=== PATIENT | female | born 1960 | race Caucasian/White ===

== ENCOUNTER 2017-05-10 14:40 | Emergency (ER) | payer OTHER ==
[2017-05-10] MEDS ORDERED: oxyCODONE/Acetamin 10/325(NF) TAB PO ONE (16:23)
[2017-05-10 16:42] LABS: Urine Appearance Clear; Urine Blood Negative (Negative); Urine Color Straw; Urine Ketones Negative (Negative); Urine Protein Negative (Negative); Urine Specific Gravity 1.002 (1.010-1.030); Urine Urobilinogen Negative (Negative)
[2017-05-10] MEDS ORDERED: oxyCODONE/Acetamin 5/325 MG* TAB PO ONE ×2 (17:00→17:58)
[2017-05-10] MEDS ORDERED: oxyCODONE TAB* 5 MG TAB PO ONE ×2 (17:00→17:59)
--- NOTE | 2017-05-10 17:30 | RAD ---
Indication: Left groin pain. CT of the pelvis was obtained in the axial plane. Sagittal and coronal reconstructed images were obtained. The pelvic ring is intact with no evidence of fracture. There is a left direct type inguinal hernia containing omentum. No bowel herniation is noted. The right side is unremarkable. The uterus and ovaries are unremarkable. The colon is filled with stool. IMPRESSION: There appears to be a hernia in the left inguinal region consistent with a direct type hernia containing omentum.
[2017-05-10] MEDS ORDERED: Ketorolac INJ* 60 MG/2 ML VIAL IM ONE (17:58)
[2017-05-10] MEDS ORDERED: LORazepam TAB(*) 1 MG PO ONE (17:58)
[2017-05-10] MEDS ORDERED: Morphine INJ* 4 MG/ML 1 ML CARPUJECT IM ONE (18:51)
[2017-05-10] MEDS ORDERED: HYDROmorphone TAB* 4 MG PO ONE (18:52)
--- NOTE | 2017-05-10 18:59 | ED ---
Wilfredo Christie Abhishek, scribed for Arthur Garcia MD on 05/10/17 at 1629 . Abdominal Pain/Female - HPI Summary HPI Summary: This patient is a 57 year old F presenting to [facility] accompanied by male with a chief complaint of lower abd pain since Thursday (05/17/17). The pt states she has a lump in the groin area and states she has had it for a while. Prior to the onset of the pain, the pt was shoveling snow at her home with her when she suddenly felt pain in her lower abd region. According to the pts , the pt was in pain distress and crying for two days. When describing the pain, pt states the pain originates in the lower abd and is near the groin. The patient rates the pain 10/10 in severity. Symptoms aggravated by sitting down and movement. Symptoms alleviated by nothing. - History of Current Complaint Chief Complaint: EDAbdPain Stated Complaint: POSSIBLE HERNIA Time Seen by Provider: 05/10/17 15:55 Hx Obtained From: Patient, Family/Supervisor Machining Onset/Duration: Sudden Onset, Lasting Days - since 05/08/17 Timing: Constant Severity Initially: Severe Severity Currently: Severe Pain Intensity: 10 Pain Scale Used: 0-10 Numeric Location: Suprapubic, Groin Aggravating Factor(s): Movement, Other: - sitting down Alleviating Factor(s): Nothing Associated Signs and Symptoms: Positive: Negative Allergies/Adverse Reactions: Allergies Allergy/AdvReac Type Severity Reaction Status Date / Time Tramadol Allergy Swelling Verified 05/10/17 16:36 PMH/Surg Hx/FS Hx/Imm Hx Endocrine/Hematology History: Denies: Hx Diabetes Cardiovascular History: Denies: Hx Hypertension, Hx Pacemaker/ICD History: Denies: Hx Renal Disease Musculoskeletal History: Reports: Hx Back Problems - chronic back pain and back problems , Hx Fibromyalgia, Other Musculoskeletal History - Chronic Neck Pain Sensory History: Denies: Hx Hearing Aid Psychiatric History: Denies: Hx Panic Disorder - Surgical History Surgery Procedure, Year, and Place: BUNION LEFT FOOT S. C SECTION 1986 Infectious Disease History: No Infectious Disease History: Denies: Traveled Outside the [place] in Last 30 Days - Family History Known Family History: Positive: Other - mother with oral cancer. Negative: Cardiac Disease, Hypertension, Diabetes - Social History Alcohol Use: Rare Substance Use Type: Reports: Marijuana Hx Tobacco Use: Yes Smoking Status (MU): Current Every Day Smoker Type: Cigarettes Amount Used/How Often: 1 PPD Review of Systems Constitutional: Negative Eyes: Negative ENT: Negative Cardiovascular: Negative Respiratory: Negative Positive: Abdominal Pain - suprapubic abd pain Genitourinary: Negative Musculoskeletal: Other - Groin pain Positive: Other - "lump" near the groin area Skin: Negative Neurological: Negative Psychological: Normal All Other Systems Reviewed And Are Negative: Yes Physical Exam - Summary Physical Exam Summary: ppearance: The patient is well-nourished in no acute distress and in no acute pain. Skin: The skin is warm and dry and skin color reflects adequate perfusion. HEENT: ~The head is normocephalic and atraumatic. The pupils are equal and reactive. The conjunctivae are clear and without drainage. ~Nares are patent and without drainage. ~Mouth reveals moist mucous membranes and the throat is without erythema and exudate. ~The external ears are intact. The ear canals are patent and without drainage. The tympanic membranes are intact. Neck: the neck is supple with full range of motion and non-tender. There are no carotid bruits. ~There is no neck vein distension. Respiratory: Chest is non-tender. ~Lungs are clear to auscultation and breath sounds are symmetrical and equal. Cardiovascular: Heart is regular rate and rhythm. ~There is no murmur or rub auscultated. ~~There is no peripheral edema and pulses are symmetrical and equal. Abdomen: The abdomen is soft and non-tender. ~There are normal bowel sounds heard in all four quadrants and there is no organomegaly palpated. Musculoskeletal: Easily reducible left hernia Neurological: Patient is alert and oriented to person, place and time. ~The patient has symmetrical motor strength in all four extremities. ~Cranial nerves are grossly intact. Deep tendon reflexes are symmetrical and equal in all four extremities. Psychiatric: The patient has an appropriate affect and does not exhibit any anxiety or depression. Triage Information Reviewed: Yes Vital Signs On Initial Exam: Initial Vitals Temp Pulse Resp BP Pulse Ox 99.3 F 80 16 145/78 97 05/10/17 15:04 05/10/17 15:04 05/10/17 15:04 05/10/17 15:04 05/10/17 15:04 Vital Signs Reviewed: Yes - Leonard Coma Scale Coma Scale Total: 15 Diagnostics - Vital Signs Vital Signs Temp Pulse Resp BP Pulse Ox 05/10/17 15:04 99.3 F 80 16 145/78 97 - Laboratory Lab Results: Lab Results 05/10/17 Range/Units 16:30 Urine Color Straw Urine Appearance Clear Urine pH 7.0 (5-9) Ur Specific [place] 1.002 L (1.010-1.030) Urine Protein Negative (Negative) Urine Ketones Negative (Negative) Urine Blood Negative (Negative) Urine Nitrate Negative (Negative) Urine Bilirubin Negative (Negative) Urine Urobilinogen Negative (Negative) Ur Leukocyte Esterase Negative (Negative) Urine Glucose Negative (Negative) Lab Statement: Any lab studies that have been ordered have been reviewed, and results considered in the medical decision making process. - CT Pelvis CT CT Interpretation Completed By: Radiologist - Pelvis CT reveals There appears to be a hernia in the left inguinal region consistent with a direct type hernia containing omentum. ED physician has reviewed this radiology report and agrees. Abdominal Pain Fem Course/Dx - Course Course Of Treatment: Ms. Jose Roberts presented with left groin pain since shoveling snow on Thursday (yesterday). She was found to have a hernia and although I could not feel anything coming through when she was supine, there was a small amount of omentem seen on CT. I spoke with Dr. Chavez who reviewed the CT and recommended symptomatic treatment and F/U in his office. - Diagnoses Provider Diagnoses: Inguinal hernia Discharge - Discharge Plan Condition: Stable Disposition: HOME Patient Education Materials: Inguinal Hernia (ED) Referrals: Cipriano Blackburn MD [Primary Care Provider] - (Follow up with PCP within 2 to 3 days. Call your PCP tomorrow for pain medication.) Additional Instructions: RETURN TO THE EMERGENCY DEPARTMENT FOR CHANGING OR WORSENING SYMPTOMS. The documentation as recorded by the Wilfredo holman Abhishek accurately reflects the service I personally performed and the decisions made by me, Arthur Garcia MD.
[2017-05-10 19:57] VITALS: BP 134/67
== END 2017-05-10 20:11 | disposition home or self-care (01) ==
LOC: ED 14:40
DX: K40.90 Unilateral inguinal hernia, without obstruction or gangrene, not specified as recurrent (principal); R10.30 Lower abdominal pain, unspecified
CPT/HCPCS: 72192; 81003; 96372; 99282; A9270-GY; J1885; J2270

== ENCOUNTER 2017-05-14 10:21 | Day surgery (SDC) | payer OTHER ==
--- NOTE | 2017-05-13 13:49 | HP ---
AMENDED REPORT NOW INCLUDES COSIGNER DESIGNATION - ESIGNED BEFORE ADJUSTMENT CC: Dr. Chavez; Dr. Blackburn; [facility] * PRIORITY PREOPERATIVE HISTORY AND PHYSICAL: DATE OF ADMISSION: This patient is scheduled for same-day surgery admission by Dr. Chavez, tomorrow, 05/14/17. DATE OF PREOPERATIVE HISTORY AND PHYSICAL EXAMINATION: 05/13/17. ATTENDING SURGEON: Dr. Nelson Chavez * (dictated by Halle Qiu, YAEL). CHIEF COMPLAINT: Painful left inguinal hernia. HISTORY OF PRESENT ILLNESS: The patient is a 57-year-old female referred to Dr. Chavez from the [facility] Emergency Department for evaluation of a painful hernia in the left groin. She was seen in the emergency department last weekend, she had a CAT scan of the abdomen and pelvis, which revealed fat in the left inguinal defect and was then discharged home with pain medication and referred for surgical consultation. Dr. Chavez examined the patient and notes an obvious left inguinal hernia, which is tender, but reducible. Dr. Chavez discussed findings with the patient and has recommended open left inguinal hernia repair with mesh as a same-day surgery procedure. Dr. Chavez described the nature of the surgical procedure, the rationale for the procedure, the use of mesh and today, I reviewed the expected postoperative care and recovery. The patient has had a chance to ask questions and stated that she understands the information and is satisfied with the answers given to her questions. She will sign surgical consent on the day of surgery. PAST MEDICAL HISTORY: Significant for chronic pain related to herniated neck and back disks status post an injury when she fell approximately 5 years ago; she has also recently been diagnosed with fibromyalgia; she is followed in the [facility] and has also had Rheumatology consults. PAST SURGICAL HISTORY: Right bunionectomy, 1993; section, 1986. OB HISTORY: 3, para 3. She is post-menopausal since March 2016. She is up to date with breast exam, mammogram, pelvic, and Pap smear. MEDICATIONS: 1. Percocet 10/325 mg four times a day. 2. Cymbalta 60 mg daily. 3. Baclofen 10 mg t.i.d. ALLERGIES: TRAMADOL has caused swelling. FAMILY HISTORY: Mother , age 72 with a history of oral cancer and colon cancer. Father , age 62 with a history of hemochromatosis. No known anesthesia complications, bleeding tendencies, or clotting disorders. SOCIAL HISTORY: She is ; she quit smoking 4 days ago and prior to that smoked a pack of cigarettes per day for 40 years; she is using NicoDerm patch; she denies the use of alcohol or other substances. REVIEW OF SYSTEMS: Constitutional: No fevers, chills, excessive fatigue, or weight loss. Endocrine: No diabetes or thyroid disease. Hematologic: No easy bruising or bleeding. No history of blood transfusions. Respiratory: She recently quit smoking 4 days ago. She denies any productive cough or dyspnea on exertion. Cardiovascular: No anginal chest pain or palpitations. Gastrointestinal: No nausea, vomiting, diarrhea, or constipation. No change in bowel habits. Genitourinary: No dysuria. Musculoskeletal: Chronic neck and back pain. Neurologic: No headache, no blurred vision; she reports numbness in her upper extremities related to the herniated cervical disks. General: No history of deep vein thrombosis or pulmonary embolism. No history of anesthesia complications. PHYSICAL EXAMINATION GENERAL SURVEY: The patient is a 57-year-old female, well-developed, well- nourished, in no acute distress. VITAL SIGNS: Height 63 inches, weight 145 pounds, body mass index 25.7, blood pressure 124/84, pulse 74 and regular, respiratory rate 16, temperature 97.6 tympanic. HEENT: Benign. NECK: Supple. No cervical lymphadenopathy. BACK: No CVA tenderness. LUNGS: Breath sounds bilaterally clear and equal. HEART: Regular rate and rhythm. No murmurs or rubs appreciated. ABDOMEN: Active bowel sounds, soft, nondistended, and nontender. Groin examination reveals an obvious left inguinal hernia, which is tender, but reducible. No lymphadenopathy. No right inguinal hernia. No other masses. PELVIC AND RECTAL: Exams deferred. EXTREMITIES: Warm without edema or skin ulceration. NEUROLOGIC: Alert and oriented x3, steady gait. SKIN: Warm, dry, and intact. IMPRESSION: Left inguinal hernia. PLAN: Same-day surgery admission to Dr. Chavez's service, tomorrow, 05/14/17, for open left inguinal hernia repair with mesh. PIPO QIU, PUBLIC HEALTH AIDE [id number]/[facility] #: [id number] SAMANTHA
[~2017-05-14 10:21] MED LIST: Buffered Lidocaine 0.9% SYRIN* 5 ML/SYR SYRINGE INTRADERM ONE
[2017-05-14] MEDS ORDERED: ceFAZolin 2 GM PREMIX (*) 2 GM/50 ML BAG IVPB ONE (10:35)
[2017-05-14] MEDS ORDERED: Buffered Lidocaine 0.9% SYRIN* 5 ML/SYR SYRINGE ONE (10:35)
[2017-05-14] MEDS ORDERED: Lidocaine 1% MPF wEPI 200,000* 30 ML SDV ONE (11:00)
[2017-05-14] MEDS ORDERED: Midazolam* 1 MG/ML 2 ML VIAL (2 MG) ONE (11:39)
[2017-05-14] MEDS ORDERED: fentaNYL* 50 MCG/ML 2 ML VIAL (100 MCG VIAL) ONE ×2 (11:39→13:16)
[2017-05-14] MEDS ORDERED: Propofol* 10 MG/ML 20 ML BTL IV PUSH ONE (11:40)
[2017-05-14] MEDS ORDERED: Bupivacaine 0.5% SDV PF* 10-30ML VIAL ONE (11:50)
[2017-05-14] MEDS ORDERED: Naloxone* 0.4 MG/ML 1 ML VIAL IV PRN (12:30)
[2017-05-14] MEDS ORDERED: Ondansetron INJ* 2 MG/ML VIAL IV PRN (12:30)
[2017-05-14] MEDS ORDERED: Ketorolac INJ* 30 MG/ML 1 ML VIAL ONE (12:32)
[2017-05-14] MEDS: fentaNYL* 50 MCG/ML 2 ML VIAL (100 MCG VIAL) IV PRN ×3 (13:21→13:39)
[2017-05-14] MEDS ORDERED: oxyCODONE/Acetamin 5/325 MG* TAB ONE (13:36)
[2017-05-14] MEDS ORDERED: oxyCODONE TAB* 5 MG TAB ONE (14:07)
[2017-05-14] MEDS ORDERED: oxyCODONE TAB* 5 MG TAB PO SCH (15:00)
[2017-05-14 15:05] VITALS: BP 162/67
--- NOTE | 2017-05-14 22:48 | OP ---
CC: Dr. Blackburn; Pain Clinic * DATE OF OPERATION: 05/14/17 - MERGED WITH [facility] DATE OF : 64 SURGEON: Nelson Chavez MD METABOLIC SPECIALIST: Halle Monaco NP ANESTHESIOLOGIST: Horace Mckeon MD ANESTHESIA: LMAC anesthesia. PRE-OP DIAGNOSIS: Left inguinal hernia. POST-OP DIAGNOSIS: Left inguinal hernia. OPERATIVE PROCEDURE: Open left inguinal hernia repair with mesh. DESCRIPTION OF PROCEDURE: The patient was supine on the operating room table after adequate intravenous sedation, compression stockings, Alvaro-Hugger warmer, and intravenous antibiotics, the left groin was prepped with antiseptic, draped in a sterile fashion. Local infiltrative anesthesia was administered and approximately 2.5-inch incision was created, dissection carried down to the external oblique, which was opened in the direction of its fibers. The round ligament structures were encircled with the Lynsey drain. There was a direct space hernia, which was dissected free. The transversalis fascia was opened and this was reduced and a preperitoneal plane was developed. There was a little bit of preperitoneal fat extending through the internal ring and this was reduced as well. A Prolene hernia system PHSE patch was put into place with the internal leaf in the preperitoneal plane. The external leaf was placed on the transverse abdominis and sutured to the inguinal ligament to the transverse abdominis and to the tubercle, tails were split, brought around the round ligament structures and tacked down laterally. External oblique was closed over top with 2-0 Vicryl, Amrie's with 3-0 Vicryl, skin with 4-0 Prolene followed by a sterile dressing. She tolerated the procedure well, was brought to Recovery in good condition. No complications. No drains. No pathologic specimens. Sponge and instrument counts were correct. Estimated blood loss 10 mL. [id number]/[facility] #: [id number] MTDD
== END 2017-05-14 15:00 | disposition home or self-care (01) ==
LOC: OR 10:21
PROVIDERS: ATTEND Surgery
DX: K40.90 Unilateral inguinal hernia, without obstruction or gangrene, not specified as recurrent (principal); M79.7 Fibromyalgia; Z87.891 Personal history of nicotine dependence; M19.90 Unspecified osteoarthritis, unspecified site; M50.20 Other cervical disc displacement, unspecified cervical region; M54.89 Other dorsalgia
CPT/HCPCS: A9270-GY; C1781; J0690; J1885; J2001; J2250; J2704; J3010

== ENCOUNTER 2017-05-16 13:16 | Emergency (ER) | payer OTHER ==
[2017-05-16] MEDS ORDERED: Morphine INJ* 4 MG/ML 1 ML CARPUJECT IM ONE (14:36)
[2017-05-16] MEDS ORDERED: Morphine INJ* 4 MG/ML 1 ML SYRINGE (NEW SYRINGE VERSION) IM ONE (15:00)
[2017-05-16] MEDS ORDERED: Morphine INJ* 4 MG/ML 1 ML SYRINGE (NEW SYRINGE VERSION) ONE (15:20)
--- NOTE | 2017-05-16 16:10 | RAD ---
HISTORY: Leg swelling, left lower extremity COMPARISONS: None relevant TECHNIQUE: Multiple transverse and longitudinal ultrasound images were obtained of the left lower extremity from the level of the common femoral vein inferiorly through to the infrapopliteal veins using grayscale, color Doppler, and spectral Doppler imaging with and without compression and with augmentation. Comparison images were obtained of the contralateral common femoral vein. FINDINGS: VEINS: The venous system of the left lower extremity is compressible throughout its course, with normal flow on color Doppler imaging and normal response to augmentation on spectral Doppler imaging. SOFT TISSUES: Unremarkable. OTHER FINDINGS: None. IMPRESSION: NO LEFT LOWER EXTREMITY DEEP VEIN THROMBOSIS
[2017-05-16] MEDS ORDERED: oxyCODONE/Acetamin 5/325 MG* TAB PO ONE (16:33)
[2017-05-16] MEDS ORDERED: oxyCODONE TAB* 5 MG TAB PO ONE (17:07)
[2017-05-16 17:45] VITALS: BP 155/80
--- NOTE | 2017-05-31 14:09 | ED ---
Ivon Christie Emily, scribed for Ciaran Velazquez MD on 05/16/17 at 1432 . Lower Extremity - HPI Summary HPI Summary: This patient is a 57 year old F presenting to [facility] accompanied by family with a chief complaint of LLE swelling that began yesterday night. The patient rates the pain 10/10 in severity. Symptoms aggravated by nothing. Symptoms alleviated by nothing. Patient reports suprapubic abd pain and abd swelling. Pt had a hernia repair on 05/14/[address] Chavez and was prescribed Percocet. - History of Current Complaint Chief Complaint: EDExtremityLower Stated Complaint: POSS BLOOD CLOT Time Seen by Provider: 05/16/17 14:13 Hx Obtained From: Patient Onset of Pain: Days Onset/Duration: Days Severity Initially: Severe Severity Currently: Severe Pain Intensity: 10 Pain Scale Used: 0-10 Numeric Timing: Constant, Lasting Days Associated Signs And Symptoms: Positive: Other - Positive suprapubic abd pain, abd swelling Aggravating Factor(s): Nothing Alleviating Factor(s): Nothing - Allergies/Home Medications Allergies/Adverse Reactions: Allergies Allergy/AdvReac Type Severity Reaction Status Date / Time Tramadol Allergy Swelling Verified 05/14/17 10:47 PMH/Surg Hx/FS Hx/Imm Hx Previously Healthy: No Endocrine/Hematology History: Denies: Hx Diabetes Cardiovascular History: Denies: Hx Hypertension, Hx Pacemaker/ICD History: Denies: Hx Renal Disease Musculoskeletal History: Reports: Hx Arthritis - BACK, Hx Back Problems - chronic back pain and back problems , Hx Fibromyalgia, Other Musculoskeletal History - Chronic Neck Pain Sensory History: Denies: Hx Contacts or Glasses, Hx Hearing Aid Opthamlomology History: Denies: Hx Contacts or Glasses Psychiatric History: Denies: Hx Panic Disorder - Surgical History Surgery Procedure, Year, and Place: BUNION LEFT FOOT 1989'S. C SECTION 1986 Hx Anesthesia Reactions: No - Immunization History Date of Influenza Vaccine: 12/2016 Immunizations Up to Date: Yes Infectious Disease History: No Infectious Disease History: Denies: Traveled Outside the [place] in Last 30 Days - Family History Known Family History: Positive: Other - mother with oral cancer. Negative: Cardiac Disease, Hypertension, Diabetes - Social History Occupation: Unemployed Lives: With Family Alcohol Use: None Substance Use Type: Reports: None, Marijuana, Prescribed Substance Use Comment - Amount & Last Used: OCASSIONAL Hx Tobacco Use: Yes Smoking Status (MU): Former Smoker Type: Cigarettes Amount Used/How Often: 1 PPD Have You Smoked in the Last Year: Yes Review of Systems Negative: Fever, Chills Negative: Erythema Negative: Sore Throat Negative: Chest Pain Negative: Shortness Of Breath, Cough Positive: Abdominal Pain, Other - Positive abd swelling. Negative: Vomiting, Nausea Negative: dysuria, hematuria Positive: Edema. Negative: Myalgia Negative: Rash Neurological: Other - Negative dizziness All Other Systems Reviewed And Are Negative: Yes Physical Exam - Summary Physical Exam Summary: Constitutional: Well-developed, Well-nourished, Alert. (-) Distressed Skin: Warm, Dry HENT: Normocephalic; Atraumatic Eyes: Conjunctiva normal Neck: Musculoskeletal ROM normal neck. (-) JVD, (-) Stridor, (-) Tracheal deviation Cardio: Rhythm regular, rate normal, Heart sounds normal; Intact distal pulses; The pedal pulses are 2+ and symmetric. Radial pulses are 2+ and symmetric. (-) Murmur Pulmonary/Chest wall: Effort normal. (-) Respiratory distress, (-) Wheezes, (-) Rales Abd: Soft, (-) Distension, (-) Guarding, (-) Rebound, Incision is clean, dry, and intact. Mild swelling over the left groin Musculoskeletal: No leg swelling Lymph: (-) Cervical adenopathy Neuro: Alert, Oriented x3 Psych: Mood and affect Normal Triage Information Reviewed: Yes Vital Signs On Initial Exam: Initial Vitals Temp Pulse Resp BP Pulse Ox 98.4 F 67 15 170/87 97 05/16/17 13:18 05/16/17 13:18 05/16/17 13:18 05/16/17 13:18 05/16/17 13:18 Vital Signs Reviewed: Yes - Marcelino Coma Scale Coma Scale Total: 15 Diagnostics - Vital Signs Vital Signs Temp Pulse Resp BP Pulse Ox 05/16/17 13:18 98.4 F 67 15 170/87 97 - Laboratory Lab Statement: Any lab studies that have been ordered have been reviewed, and results considered in the medical decision making process. - Additional Comments Diagnostic Additional Comments: Venous doppler study reveals, per radiologist, no left lower extremity deep vein thrombosis. ED physician has reviewed this radiology report. Lower Extremity Course/Dx - Course Assessment/Plan: No signs of postoperative infection. We will not increase pain medications due to the risk or overdose. Continue with elevation and ice packs. - Diagnoses Provider Diagnoses: postoperative swelling, Postoperative pain, Opioid dependence Discharge - Discharge Plan Condition: Stable Disposition: HOME Patient Education Materials: Pain Management After Surgery (GEN) Referrals: Nelson Chavez MD [Medical Doctor] - 3 Days Additional Instructions: RETURN TO THE EMERGENCY DEPARTMENT FOR NEW OR CHANGING SYMPTOMS The documentation as recorded by the Ivon holman Emily accurately reflects the service I personally performed and the decisions made by Caroline carrillo Jerry, MD.
== END 2017-05-16 17:43 | disposition home or self-care (01) ==
LOC: ED 13:16
DX: T81.89XA Other complications of procedures, not elsewhere classified, initial encounter (principal); M79.89 Other specified soft tissue disorders; G89.18 Other acute postprocedural pain; F11.20 Opioid dependence, uncomplicated; Z87.891 Personal history of nicotine dependence; Z88.5 Allergy status to narcotic agent
CPT/HCPCS: 96372; 99282; A9270-GY; J2270

== ENCOUNTER 2017-09-24 14:30 | Emergency (ER) | payer OTHER ==
[2017-09-24 19:55] VITALS: BP 00/00
== END 2017-09-24 16:00 | disposition left against medical advice (07) ==
LOC: ED 14:30
DX: T14.8XXA Other injury of unspecified body region, initial encounter (principal)

== ENCOUNTER 2018-06-18 03:43 | Emergency (ER) | payer OTHER ==
[2018-06-18] MEDS ORDERED: Amoxicillin/Clavulanate TAB* 875 MG PO ONE (04:13)
--- NOTE | 2018-06-18 04:16 | ED ---
Throat Pain/Nasal Congestion - HPI Summary HPI Summary: A 58 y/o female accompanied by her presents to [facility] with a chief complaint of ear pain on both sides, with her left worse than her right, since about 06/13/18. At triage the patient rated her pain as a 1010 in severity. She denies fever, chills, cough and congestion. She claims that she has difficulty swallowing. She has had a Hx of ear infections. She denies a Hx of DM. She claims that she has been taking percocet, but it has not been alleviating her symptoms. - History of Current Complaint Chief Complaint: EDEarPain Hx Obtained From: Patient, Family/Food Consultant Onset/Duration: Sudden Onset, Lasting Days, Still Present Severity: Severe Associated Signs And Symptoms: Negative: Sinus Discomfort Cough: None - Allergies/Home Medications Allergies/Adverse Reactions: Allergies Allergy/AdvReac Type Severity Reaction Status Date / Time tramadol Allergy Swelling Verified 06/18/18 03:48 PMH/Surg Hx/FS Hx/Imm Hx Endocrine/Hematology History: Denies: Hx Diabetes Cardiovascular History: Denies: Hx Hypertension, Hx Pacemaker/ICD History: Denies: Hx Renal Disease Musculoskeletal History: Reports: Hx Arthritis - BACK, Hx Back Problems - chronic back pain and back problems , Hx Fibromyalgia, Other Musculoskeletal History - Chronic Neck Pain Sensory History: Denies: Hx Contacts or Glasses, Hx Hearing Aid Opthamlomology History: Denies: Hx Contacts or Glasses Psychiatric History: Denies: Hx Panic Disorder - Surgical History Surgery Procedure, Year, and Place: BUNION LEFT FOOT 1989'S. C SECTION 1986. INGUINAL HERNIA REPAIR AT [facility], 05/14/17 Hx Anesthesia Reactions: No - Immunization History Date of Influenza Vaccine: 12/2016 Infectious Disease History: No Infectious Disease History: Denies: Traveled Outside the [place] in Last 30 Days - Family History Known Family History: Positive: Other - mother with oral cancer. Negative: Cardiac Disease, Hypertension, Diabetes - Social History Alcohol Use: None Substance Use Type: Reports: None Substance Use Comment - Amount & Last Used: OCASSIONAL Hx Tobacco Use: Yes Smoking Status (MU): Heavy Every Day Tobacco Smoker Type: Cigarettes Amount Used/How Often: 1 PPD Have You Smoked in the Last Year: Yes Review of Systems Negative: Fever, Chills ENT: Negative - congestion Negative: Cough All Other Systems Reviewed And Are Negative: Yes Physical Exam - Summary Physical Exam Summary: Appearance: Well-appearing, Well-nourished, lying in bed comfortable Skin: Warm, dry, no obvious rash Eyes: sclera anicteric, no conjunctival pallor ENT: mucous membranes moist, tender about ear, no obvious external signs, drum is opaque and erythematous, no normal light reflex. Neck: deferred Respiratory: No signs of respiratory distress Cardiovascular: Appears well perfused, pulses are nml Abdomen: deferred Musculoskeletal: Moving all 4 extremities without obvious discomfort Neurological: Awake and alert, mentation is normal, speech is fluent and appropriate Psychiatric: affect is normal, does not appear anxious or depressed Triage Information Reviewed: Yes Vital Signs On Initial Exam: Initial Vitals Temp Pulse Resp BP Pulse Ox 98.1 F 64 16 193/94 100 06/18/18 03:45 06/18/18 03:45 06/18/18 03:45 06/18/18 03:45 06/18/18 03:45 Vital Signs Reviewed: Yes Diagnostics - Vital Signs Vital Signs Temp Pulse Resp BP Pulse Ox 06/18/18 03:45 98.1 F 64 16 193/94 100 - Laboratory Lab Statement: Any lab studies that have been ordered have been reviewed, and results considered in the medical decision making process. EENT Course/Dx - Course Course Of Treatment: The physical exam revealed that she is tender about ear, no obvious external signs, drum is opaque and erythematous around, no normal light reflex. The patient will be discharged with a prescription for augmentin. The patient is agreeable with this plan. - Diagnoses Provider Diagnoses: Otitis media Discharge - Sign-Out/Discharge Documenting (check all that apply): Patient Departure - DC Patient Received Moderate/Deep Sedation with Procedure: No - Discharge Plan Condition: Good Disposition: HOME Prescriptions: Amoxicillin/Clavulanate TAB* [Augmentin TAB 875*] 875 mg PO BID #20 tab Patient Education Materials: Ear Infection (ED) Referrals: Alfredo Ewing MD [Medical Doctor] - 3 Days (if not improving) Cipriano Blackburn MD [Primary Care Provider] - - Billing Disposition and Condition Condition: GOOD Disposition: Home - Attestation Statements Document Initiated by Scribe: Yes Documenting Scribe: Joe Dee Provider For Whom Scribe is Documenting (Include Credential): Arthur Bee MD Scribe Attestation: I, Joe Dee, scribed for Arthur Bee MD on 06/19/18 at 0147. Scribe Documentation Reviewed: Yes Provider Attestation: The documentation as recorded by the scribeJoe accurately reflects the service I personally performed and the decisions made by me, Arthur Bee MD Status of Scribe Document: Viewed
[2018-06-18] MEDS ORDERED: Lidocaine PATCH 5%* 1 PATCH ONE (04:25)
[2018-06-18] MEDS ORDERED: oxyCODONE TAB* 5 MG TAB PO ONE (04:31)
[2018-06-18] MEDS ORDERED: Lidocaine PATCH 5%* 1 PATCH TRANSDERM SCH (05:00)
[2018-06-18 05:05] VITALS: BP 134/79
[2018-06-18] MEDS ORDERED: Lidocaine Patch REMOVE* 1 NOTE MISC PATCH OFF SCH (17:00)
== END 2018-06-18 04:54 | disposition home or self-care (01) ==
LOC: ED 03:43
DX: H66.90 Otitis media, unspecified, unspecified ear (principal); F17.210 Nicotine dependence, cigarettes, uncomplicated
CPT/HCPCS: 99282; A9270-GY

== ENCOUNTER 2018-11-02 08:36 | Emergency (ER) | payer OTHER ==
[2018-11-02 09:39] LABS: ABS Basophils 0.1 10^3/ul (0-0.2); ABS Eosinophils 0.2 10^3/ul (0-0.6); ABS Lymphocytes 3.1 10^3/ul (1.0-4.8); ABS Monocytes 0.8 10^3/ul (0-0.8); Eosinophil % 2.4 %; Hematocrit 40 % (35-47); Hemoglobin 13.4 g/dL (12.0-16.0); Mean Corpuscular HGB Conc 34 g/dL (31-36); Mean Corpuscular Hemoglobin 32 pg (27-31); Mean Corpuscular Volume 94 fL (80-97); Mean Platelet Volume 7.7 fL (7.4-10.4); Platelet Count 252 10^3/uL (150-450); Red Blood Count 4.23 10^6 /uL (3.70-4.87); Red Cell Distribution Width 15 % (10-15); White Blood Count 9.1 10^3/uL (3.5-10.8)
[2018-11-02 10:02] LABS: Albumin/Globulin Ratio 1.7 (1-3); BUN/Creatinine Ratio 15.2 (8-20); C Reactive Protein 2.29 mg/L (<8.01); Calcium 9.3 mg/dL (8.6-10.3); EGFR African American 112.1 (>60); EGFR Non-African American 92.6 (>60); Globulin 2.4 g/dL (2-4); Total Bilirubin 0.2 mg/dL (0.2-1.0); Total Protein 6.4 g/dL (6.4-8.9)
[2018-11-02] MEDS ORDERED: Ondansetron INJ* 2 MG/ML VIAL IV ONE (10:21)
[2018-11-02] MEDS ORDERED: Morphine 10 MG/ML VIAL (1 ml) IV ONE (10:21)
--- NOTE | 2018-11-02 10:26 | ED ---
Abdominal Pain/Female - HPI Summary HPI Summary: This patient is a 58 year old F presenting to [facility] accompanied by her with a chief complaint of left sided lower ABD pain/left groin area since 2 weeks ago. She notes she had inguinal hernia surgery April 2017 and that she had constant post-operative pain ever since. The patient rates the pain 9/10 in severity. Patient was walking to her driveway when her lower ABD bad pain worsened. Her was worried about her pain and convinced her to go to the ED. She used to be active before the surgery but is less active now because of the pain. Symptoms aggravated by exertion. Symptoms alleviated by rest. Patient also notes that she had a left swollen leg yesterday, with the swelling having reduced today. Patient denies any fever, chills, erythema of eyes, sore throat, CP, SOB, cough, N/V, dysuria, hematuria, myalgia, rash, or dizziness. She has no hx of blood clots. Patient takes percocet for pain. Her grandmother had a hx of strokes. - History of Current Complaint Chief Complaint: EDAbdPain Stated Complaint: ABD PAIN PER PT Time Seen by Provider: 11/02/18 09:26 Hx Obtained From: Patient, Family/Truck Driver Rubbish Collector - ?: No Onset/Duration: Lasting Weeks - since surgery, Still Present, Worse Since - past two weeks Timing: Constant - 2 Severity Initially: Moderate Severity Currently: Severe Pain Intensity: 9 Pain Scale Used: 0-10 Numeric Location: Discrete At: LLQ, Groin - left Aggravating Factor(s): Movement, Other: - exertion Alleviating Factor(s): Other: - rest Associated Signs and Symptoms: Positive: Other: - positive - left lower ABD pain /groin pain. Negative: Fever, Cough, Chest Pain, Dizzy, Urinary Symptoms - no hematuria or dysuria, Nausea, Vomiting Allergies/Adverse Reactions: Allergies Allergy/AdvReac Type Severity Reaction Status Date / Time tramadol Allergy Swelling Verified 11/02/18 08:42 PMH/Surg Hx/FS Hx/Imm Hx Previously Healthy: No Endocrine/Hematology History: Denies: Hx Diabetes Cardiovascular History: Denies: Hx Hypertension, Hx Pacemaker/ICD History: Denies: Hx Renal Disease Musculoskeletal History: Reports: Hx Arthritis - BACK, Hx Back Problems - chronic back pain and back problems , Hx Fibromyalgia, Other Musculoskeletal History - Chronic Neck Pain Sensory History: Denies: Hx Contacts or Glasses, Hx Hearing Aid Opthamlomology History: Denies: Hx Contacts or Glasses Psychiatric History: Denies: Hx Panic Disorder - Surgical History Surgical History: Yes Surgery Procedure, Year, and Place: BUNION LEFT FOOT 1989'S. C SECTION 1986. [place] [facility] [place] Hx Anesthesia Reactions: No - Immunization History Date of Influenza Vaccine: 12/2016 Infectious Disease History: No Infectious Disease History: Denies: Traveled Outside the [place] in Last 30 Days - Family History Known Family History: Positive: Other - mother with oral cancer. Negative: Cardiac Disease, Hypertension, Diabetes - Social History Alcohol Use: None Hx Substance Use: No Substance Use Type: Reports: None Substance Use Comment - Amount & Last Used: OCASSIONAL Hx Tobacco Use: Yes Smoking Status (MU): Heavy Every Day Tobacco Smoker Type: Cigarettes Amount Used/How Often: 1 PPD Have You Smoked in the Last Year: Yes Review of Systems Negative: Fever, Chills Negative: Erythema Negative: Sore Throat Negative: Chest Pain Negative: Shortness Of Breath, Cough Positive: Abdominal Pain. Negative: Vomiting, Nausea Negative: dysuria, hematuria Positive: Edema - left leg. Negative: Myalgia Negative: Rash Neurological: Other - negative - dizziness All Other Systems Reviewed And Are Negative: Yes Physical Exam - Summary Physical Exam Summary: Constitutional: Well-developed, Well-nourished, Alert. (-) Distressed Skin: Warm, Dry HENT: Normocephalic; Atraumatic Eyes: Conjunctiva normal Neck: Musculoskeletal ROM normal neck. (-) JVD, (-) Stridor, (-) Tracheal deviation Cardio: Rhythm regular, rate normal, Heart sounds normal; Intact distal pulses; The pedal pulses are 2+ and symmetric. Radial pulses are 2+ and symmetric. (-) Murmur Pulmonary/Chest wall: Effort normal. (-) Respiratory distress, (-) Wheezes, (-) Rales Abd: tenderness inguinal creased to palpation on hernia repair scar, Soft, (-) Distension, (-) Guarding, (-) Rebound Musculoskeletal: no appreciable leg swelling or tenderness, Worsening discomfort with left hip flexion Lymph: (-) Cervical adenopathy Neuro: Alert, Oriented x3 Psych: Mood and affect Normal Triage Information Reviewed: Yes Vital Signs On Initial Exam: Initial Vitals Temp Pulse Resp BP Pulse Ox 97.5 F 66 16 149/87 98 11/02/18 08:39 11/02/18 08:39 11/02/18 08:39 11/02/18 08:39 11/02/18 08:39 Vital Signs Reviewed: Yes Diagnostics - Vital Signs Vital Signs Temp Pulse Resp BP Pulse Ox 11/02/18 09:07 55 98 11/02/18 08:39 97.5 F 66 16 149/87 98 - Laboratory Lab Results: Lab Results 11/02/18 11/02/18 11/02/18 Range/Units 09:33 09:33 09:33 WBC 9.1 (3.5-10.8) 10^3/uL RBC 4.23 (3.70-4.87) 10^6 /uL Hgb 13.4 (12.0-16.0) g/dL Hct 40 (35-47) % MCV 94 (80-97) fL MCH 32 H (27-31) pg MCHC 34 (31-36) g/dL RDW 15 (10-15) % Plt Count 252 (150-450) 10^3/uL MPV 7.7 (7.4-10.4) fL Neut % (Auto) 54.5 % Lymph % (Auto) 34.0 % Dillon % (Auto) 8.4 % Eos % (Auto) 2.4 % Baso % (Auto) 0.7 % Absolute Neuts (auto) 5.0 (1.5-7.7) 10^3/ul Absolute Lymphs (auto) 3.1 (1.0-4.8) 10^3/ul Absolute Monos (auto) 0.8 (0-0.8) 10^3/ul Absolute Eos (auto) 0.2 (0-0.6) 10^3/ul Absolute Basos (auto) 0.1 (0-0.2) 10^3/ul Absolute Nucleated RBC 0.0 10^3/ul Nucleated RBC % 0.0 Sodium 140 (135-145) mmol/L Potassium 4.0 (3.5-5.0) mmol/L Chloride 105 (101-111) mmol/L Carbon Dioxide 32 (22-32) mmol/L Anion Gap 3 (2-11) mmol/L BUN 10 (6-24) mg/dL Creatinine 0.66 (0.51-0.95) mg/dL Est GFR ( Amer) 112.1 (>60) Est GFR (Non-Af Amer) 92.6 (>60) BUN/Creatinine Ratio 15.2 (8-20) Glucose 87 (70-100) mg/dL Lactic Acid 0.7 (0.5-2.0) mmol/L Calcium 9.3 (8.6-10.3) mg/dL Total Bilirubin 0.20 (0.2-1.0) mg/dL AST 19 (13-39) U/L ALT 18 (7-52) U/L Alkaline Phosphatase 70 (34-104) U/L C-Reactive Protein 2.29 (<8.01) mg/L Total Protein 6.4 (6.4-8.9) g/dL Albumin 4.0 (3.2-5.2) g/dL Globulin 2.4 (2-4) g/dL Albumin/Globulin Ratio 1.7 (1-3) Lipase 22 (11.0-82.0) U/L Result Diagrams: 11/02/18 09:33 11/02/18 09:33 Lab Statement: Any lab studies that have been ordered have been reviewed, and results considered in the medical decision making process. - CT ABD/Pelvis CT Interpretation Completed By: Radiologist Summary of CT Findings: IMPRESSION: 1. Negative for recurrence of previous fat- containing LEFT inguinal hernia. 2. No etiology for LEFT groin pain evident. These findings were reviewed by Dr. Velazquez. - Ultrasound Venous Doppler Study Ultrasound Interpretation Completed By: Radiologist Summary of Ultrasound Findings: LLE IMPRESSION: NO EVIDENCE OF DEEP VENOUS THROMBOSIS IS IDENTIFIED. These findings were reviewed by Dr. Velazquez. Abdominal Pain Fem Course/Dx - Course Course Of Treatment: his patient is a 58 year old F presenting to [facility] accompanied by her with a chief complaint of left sided lower ABD pain/ left groin area since 2 weeks ago. She notes she had inguinal hernia surgery April 2017 and that she had constant post-operative pain ever since. The patient rates the pain 9/10 in severity. Patient was walking to her driveway when her lower ABD bad pain worsened. Her was worried about her pain and convinced her to go to the ED. She used to be active before the surgery but is less active now because of the pain. Symptoms aggravated by exertion. Symptoms alleviated by rest. Patient also notes that she had a left swollen leg yesterday, with the swelling having reduced today. Patient denies any fever, chills, erythema of eyes, sore throat, CP, SOB, cough, N/V, dysuria, hematuria, myalgia, rash, or dizziness. She has no hx of blood clots. Patient takes percocet for pain. Her grandmother had a hx of strokes. Physical exam shows worsening discomfort with left hip flexion, tenderness inguinal creased to palpation on hernia repair scar, no appreciable leg welling or tenderness. Rule out hernia mesh failure, recurrent hernia, worsening hernia, and DVT. Lab results show MCH 32, UA showed UR specific gravity 1.002. Venous Doppler Study IMPRESSION: NO EVIDENCE OF DEEP VENOUS THROMBOSIS IS IDENTIFIED. ABD/Pelvis IMPRESSION: 1. Negative for recurrence of previous fat-containing LEFT inguinal hernia. 2. No etiology for LEFT groin pain evident. During the ED course, the patient was given morphine and Zofran. Patient's pain could be exacerbation in chronic pain that she could have gotten post operatively, but groin strain should be considered. There is no evidence of hernia recurrence. Final diagnosis is left groin strain. Patient was agreeable to discharge plan. Patient was told to follow up with Dr. Walker in 2-[address] Hoffman, surgery, in a week. Patient was told to return to the ED for any new or worsening symptoms. - Diagnoses Provider Diagnoses: Left groin pain Discharge - Sign-Out/Discharge Documenting (check all that apply): Patient Departure - discharge Patient Received Moderate/Deep Sedation with Procedure: No - Discharge Plan Condition: Stable Prescriptions: Lidocaine PATCH 5%* [Lidoderm 5% Patch*] 1 patch TRANSDERM DAILY #14 patch Naproxen TAB* [Naprosyn 250 mg TAB*] 500 mg PO Q8H PRN #20 tab PRN Reason: Pain Scale 6-10 oxyCODONE TAB* [Roxycodone TAB 5 mg*] 5 mg PO Q6H PRN #10 tab MDD 4 PRN Reason: Pain - Moderate To Severe Patient Education Materials: Groin Strain (ED) Referrals: Janee Munroe MD [Primary Care Provider] - Additional Instructions: Follow up with Dr. Walker in 2-[address] Hoffman, surgery, in a week. Return to the ED for any new or worsening symptoms. - Attestation Statements Document Initiated by Scribe: Yes Documenting Scribe: Pro Fajardo Provider For Whom Scribe is Documenting (Include Credential): Dr. Ciaran Velazquez MD Scribe Attestation: I, Pro Clemente and Pedro Pablo Fajardo, scribed for Dr. Ciaran Velazquez MD on 11/02/18 at 1442. Status of Scribe Document: Ready
[2018-11-02 10:49] LABS: Urine Appearance Clear; Urine Bilirubin Negative (Negative); Urine Blood Negative (Negative); Urine Color Straw; Urine Glucose Negative (Negative); Urine Ketones Negative (Negative); Urine Nitrite Negative (Negative); Urine Protein Negative (Negative); Urine Specific Gravity 1.002 (1.010-1.030); Urine Urobilinogen Negative (Negative)
[2018-11-02 12:22] VITALS: BP 155/77
[2018-11-02] MEDS ORDERED: Iohexol 300* (CONTRAST) 10 ML SDV IV ONE (12:29)
[2018-11-02] MEDS ORDERED: oxyCODONE TAB* 5 MG TAB PO ONE (13:33)
== END 2018-11-02 13:55 | disposition home or self-care (01) ==
LOC: ED 08:36
DX: R10.2 Pelvic and perineal pain (principal); F17.210 Nicotine dependence, cigarettes, uncomplicated; Z88.5 Allergy status to narcotic agent
CPT/HCPCS: 36415; 74177; 80053; 81003; 83605; 83690; 85025; 86140; 96374; 96375; 99283; A9270-GY; J2270; J2405; Q9967

== ENCOUNTER 2019-01-27 10:32 | Emergency (ER) | payer OTHER ==
[2019-01-27 10:38] VITALS: BP 173/108
--- NOTE | 2019-01-27 16:11 | ED ---
Laceration/Wound HPI - HPI Summary HPI Summary: Patient is a 59-year-old female who presents emergency department for laceration to left arm that occurred last night. Patient states she was taking the garbage out when she tripped, fell and cut left arm on a tuna can. States her last tetanus immunization was within 5 years. Symptoms are mild in severity. No current modifying factors. - History of Current Complaint Stated Complaint: LEFT WRIST LAC PER PT Time Seen by Provider: 01/27/19 11:49 Hx Obtained From: Patient Pain Intensity: 4 Pain Scale Used: 0-10 Numeric - Allergy/Home Medications Allergies/Adverse Reactions: Allergies Allergy/AdvReac Type Severity Reaction Status Date / Time tramadol Allergy Swelling Verified 01/27/19 10:38 PMH/Surg Hx/FS Hx/Imm Hx Previously Healthy: Yes Endocrine/Hematology History: Denies: Hx Diabetes Cardiovascular History: Denies: Hx Hypertension, Hx Pacemaker/ICD History: Denies: Hx Renal Disease Musculoskeletal History: Reports: Hx Arthritis - BACK, Hx Back Problems - chronic back pain and back problems , Hx Fibromyalgia, Other Musculoskeletal History - Chronic Neck Pain Sensory History: Denies: Hx Contacts or Glasses, Hx Hearing Aid Opthamlomology History: Denies: Hx Contacts or Glasses Psychiatric History: Denies: Hx Panic Disorder - Surgical History Surgery Procedure, Year, and Place: BUNION LEFT FOOT S. C SECTION 1986. INGUINAL HERNIA REPAIR AT [facility] [place], 05/14/17 Hx Anesthesia Reactions: No - Immunization History Date of Influenza Vaccine: 12/2016 Infectious Disease History: No Infectious Disease History: Denies: Traveled Outside the [place] in Last 30 Days - Family History Known Family History: Positive: Other - mother with oral cancer. Negative: Cardiac Disease, Hypertension, Diabetes - Social History Occupation: Unemployed Lives: With Family Alcohol Use: None Hx Substance Use: No Substance Use Type: Reports: None Substance Use Comment - Amount & Last Used: OCASSIONAL Hx Tobacco Use: Yes Smoking Status (MU): Heavy Every Day Tobacco Smoker Type: Cigarettes Amount Used/How Often: 1 PPD Have You Smoked in the Last Year: Yes Review of Systems Positive: Other - laceration to left distal arm Neurological: Negative Negative: Weakness, Paresthesia, Numbness All Other Systems Reviewed And Are Negative: Yes Physical Exam Triage Information Reviewed: Yes Vital Signs On Initial Exam: Initial Vitals Temp Pulse Resp BP Pulse Ox 98.6 F 64 16 173/108 99 01/27/19 10:36 01/27/19 10:36 01/27/19 10:36 01/27/19 10:36 01/27/19 10:36 Vital Signs Reviewed: Yes Appearance: Positive: Well-Appearing - Pt. sitting in chair in NAD. present. Skin: Positive: Warm, Dry Head/Face: Positive: Normal Head/Face Inspection Eyes: Positive: Normal Neck: Positive: Supple Musculoskeletal: Positive: Other - 2cm linear superficial laceration to left distal forearm on the volar aspect. No bleeding. FULL ROM of wrist. No bony tenderness. Neurological: Positive: Normal, CN Intact II-III Psychiatric: Positive: Affect/Mood Appropriate Procedures - Sedation Patient Received Moderate/Deep Sedation with Procedure: No Diagnostics - Vital Signs Vital Signs Temp Pulse Resp BP Pulse Ox 01/27/19 12:57 98.6 F 64 16 173/108 99 01/27/19 10:36 98.6 F 64 16 173/108 99 - Laboratory Lab Statement: Any lab studies that have been ordered have been reviewed, and results considered in the medical decision making process. Laceration Repair Course/Dx - Course Course Of Treatment: Patient was superficial laceration occurred yesterday. Will was cleaned and dressed. Advised patient to continue wound care. To return to ER or see PCP for signs of infection. Patient understands and agrees with plan. - Differential Dx Differental Diagnoses: Laceration - Clinical Impression Provider Diagnoses: Laceration Discharge ED - Sign-Out/Discharge Documenting (check all that apply): Patient Departure - Discharge Plan Condition: Good Disposition: HOME Patient Education Materials: Laceration Without Closure (ED) Referrals: Janee Munroe MD [Primary Care Provider] - Additional Instructions: Follow up with PCP only if needed Keep wound clean and dry Clean with warm soap and water Return to ER for redness, swelling, or drainage from wound - Billing Disposition and Condition Condition: GOOD Disposition: Home
== END 2019-01-27 12:57 | disposition home or self-care (01) ==
LOC: ED 10:32
DX: S41.112A Laceration without foreign body of left upper arm, initial encounter (principal); W01.118A Fall on same level from slipping, tripping and stumbling with subsequent striking against other sharp object, initial encounter; W26.8XXA Contact with other sharp object(s), not elsewhere classified, initial encounter; Y92.008 Other place in unspecified non-institutional (private) residence as the place of occurrence of the external cause; F17.210 Nicotine dependence, cigarettes, uncomplicated; Z88.5 Allergy status to narcotic agent; Z79.899 Other long term (current) drug therapy
CPT/HCPCS: 99281

== ENCOUNTER 2019-02-06 22:51 | Emergency (ER) | payer OTHER ==
[2019-02-06] MEDS ORDERED: Amoxicillin/Clavulanate TAB* 875 MG PO ONE (23:58)
--- NOTE | 2019-02-07 | ED ---
Bite Injury/Animal - HPI Summary HPI Summary: Patient complains of bite through skin above left upper lip from cat. 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 Patient states cat was originally apparent cat which she adopted 1 month ago. Has not been vaccinated, but is available for animal control. Patient states she clean the bite with hydrogen peroxide and Neosporin. - History of Current Complaint Chief Complaint: EDAnimalBite Stated Complaint: CAT BITE UPPER LIP PER PT Time Seen by Provider: 02/06/19 23:29 Hx Obtained From: Patient Onset of Injury: Happened hours ago Type of Bite: Pet Hx of Bite: Provoked by: Has Animal Been Immunized?: No Severity Initially: Severe Severity Currently: Severe Pain Intensity: 8 Pain Scale Used: 0-10 Numeric Character: Puncture Associated Signs And Symptoms: Positive: Negative Animal Available for Observation: Yes Animal Control Notified: Yes - Allergies/Home Medications Allergies/Adverse Reactions: Allergies Allergy/AdvReac Type Severity Reaction Status Date / Time tramadol Allergy Swelling Verified 02/06/19 22:55 PMH/Surg Hx/FS Hx/Imm Hx Endocrine/Hematology History: Denies: Hx Diabetes Cardiovascular History: Denies: Hx Hypertension, Hx Pacemaker/ICD History: Denies: Hx Dialysis, Hx Renal Disease Musculoskeletal History: Reports: Hx Arthritis - BACK, Hx Back Problems - chronic back pain and back problems , Hx Fibromyalgia, Other Musculoskeletal History - Chronic Neck Pain Sensory History: Denies: Hx Contacts or Glasses Opthamlomology History: Denies: Hx Contacts or Glasses EENT History: Denies: Hx Hearing Problem Neurological History: Denies: Hx Dementia Psychiatric History: Denies: Hx Panic Disorder - Surgical History Surgery Procedure, Year, and Place: BUNION LEFT FOOT S. C SECTION 1986. INGUINAL HERNIA REPAIR AT [facility] – [place], 05/14/17 Hx Anesthesia Reactions: No - Immunization History Date of Influenza Vaccine: 12/2016 Immunizations Up to Date: Yes Infectious Disease History: No Infectious Disease History: Denies: Traveled Outside the [place] in Last 30 Days - Family History Known Family History: Positive: Other - mother with oral cancer. Negative: Cardiac Disease, Hypertension, Diabetes - Social History Alcohol Use: None Hx Substance Use: No Substance Use Type: Reports: None Substance Use Comment - Amount & Last Used: OCASSIONAL Hx Tobacco Use: Yes Smoking Status (MU): Heavy Every Day Tobacco Smoker Type: Cigarettes Amount Used/How Often: 1 PPD Have You Smoked in the Last Year: Yes Review of Systems Constitutional: Negative Eyes: Negative ENT: Negative Cardiovascular: Negative Respiratory: Negative Gastrointestinal: Negative Genitourinary: Negative Musculoskeletal: Negative Skin: Other Neurological: Negative Psychological: Normal All Other Systems Reviewed And Are Negative: Yes Physical Exam - Summary Physical Exam Summary: Puncture wound with small laceration to skin above left upper lip. Does not penetrate through intraoral space. Triage Information Reviewed: Yes Vital Signs On Initial Exam: Initial Vitals Temp Pulse Resp BP Pulse Ox 98.2 F 77 15 146/73 98 02/06/19 22:53 02/06/19 22:53 02/06/19 22:53 02/06/19 22:53 02/06/19 22:53 Vital Signs Reviewed: Yes Appearance: Positive: Well-Appearing Skin: Positive: Warm Head/Face: Positive: Normal Head/Face Inspection Eyes: Positive: Normal ENT: Positive: Normal ENT inspection Neck: Positive: Supple Respiratory/Lung Sounds: Positive: Clear to Auscultation Cardiovascular: Positive: Normal Abdomen Description: Positive: Nontender Musculoskeletal: Positive: Normal Neurological: Positive: Normal Psychiatric: Positive: Normal AVPU Assessment: Alert - Marcelino Coma Scale Best Eye Response: 4 - Spontaneous Best Motor Response: 6 - Obeys Commands Best Verbal Response: 5 - Oriented Coma Scale Total: 15 Procedures - Sedation Patient Received Moderate/Deep Sedation with Procedure: No Diagnostics - Vital Signs Vital Signs Temp Pulse Resp BP Pulse Ox 02/06/19 22:53 98.2 F 77 15 146/73 98 - Laboratory Lab Statement: Any lab studies that have been ordered have been reviewed, and results considered in the medical decision making process. Bite Injury Course/Dx - Course Course Of Treatment: Patient complains of bite through skin above left upper lip from cat. 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 Patient states cat was originally apparent cat which she adopted 1 month ago. Has not been vaccinated, but is available for animal control. Patient states she clean the bite with hydrogen peroxide and Neosporin. Vital signs within normal limits. Wound allowed to heal by secondary intention. Started on Augmentin. Rx for same. - Diagnoses Provider Diagnosis: Cat bite Discharge ED - Sign-Out/Discharge Documenting (check all that apply): Patient Departure - Discharge Plan Condition: Stable Disposition: HOME Prescriptions: Amoxicillin/Clavulanate TAB* [Augmentin TAB 875*] 875 mg PO BID #20 tab Patient Education Materials: Animal Bite (ED) Referrals: Janee Munroe MD [Primary Care Provider] - Additional Instructions: You will be contacted by animal control. Take antibiotics as directed. Keep wound clean and dry. Return to the ED for any worsening symptoms. - Billing Disposition and Condition Condition: STABLE Disposition: Home
[2019-02-07] MEDS ORDERED: Ibuprofen TAB* 600 MG PO ONE (00:16)
[2019-02-07] MEDS ORDERED: oxyCODONE TAB* 5 MG TAB PO ONE (00:27)
[2019-02-07 00:32] VITALS: BP 146/72
== END 2019-02-07 00:25 | disposition home or self-care (01) ==
LOC: ED 22:51
DX: S01.531A Puncture wound without foreign body of lip, initial encounter (principal); W55.01XA Bitten by cat, initial encounter; Y92.9 Unspecified place or not applicable; Z88.5 Allergy status to narcotic agent; F17.200 Nicotine dependence, unspecified, uncomplicated
CPT/HCPCS: 99282; A9270-GY